=== PATIENT | male | born 2000 | race Caucasian/White ===

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

== ENCOUNTER 2021-03-10 15:49 | Emergency (ER) | payer OTHER ==
[~2021-03-10] VITALS: Ht 175.3 cm; Wt 65.8 kg
[2021-03-10] MEDS ORDERED: KETO10TA2 PO (16:22)
[2021-03-10] MEDS ORDERED: MEDROL4 MG PO (16:22)
== END 2021-03-10 16:34 | disposition home or self-care (01) ==
LOC: EMR PED 15:49
DX: M26.602 Left temporomandibular joint disorder, unspecified (principal)

== ENCOUNTER 2022-03-05 09:37 | Emergency (ER) | payer OTHER ==
[~2022-03-05] VITALS: Ht 175.3 cm; Wt 70.3 kg
[~2022-03-05 09:37] MED LIST changes: +KETO10TA2 PO; +MEDROL4 MG PO
[2022-03-05] MEDS ORDERED: OSEL75CA PO (11:50)
== END 2022-03-05 12:58 | disposition home or self-care (01) ==
LOC: EMR PED 09:37
DX: B34.9 Viral infection, unspecified (principal); R05.9 Cough, unspecified; Z20.822 Contact with and (suspected) exposure to COVID-19

== ENCOUNTER 2022-05-05 11:59 | Emergency (ER) | payer OTHER ==
[~2022-05-05] VITALS: Ht 175.3 cm; Wt 72.6 kg
[~2022-05-05 11:59] MED LIST changes: +OSEL75CA PO
[2022-05-05] MEDS ORDERED: NAPR500T14 PO (14:41)
== END 2022-05-05 14:59 | disposition home or self-care (01) ==
LOC: ER 11:59 → EMR PED 12:01
DX: M62.830 Muscle spasm of back (principal)

== ENCOUNTER → 2022-10-23 | Emergency (ER) | payer OTHER ==
[~2022-10-23] VITALS: Ht 177.8 cm; Wt 77.1 kg
[~2022-10-23] MED LIST changes: +NAPR500T14 PO
== END | disposition left against medical advice (07) ==
LOC: ER 18:46
DX: R07.89 Other chest pain (principal); Z20.822 Contact with and (suspected) exposure to COVID-19

== ENCOUNTER 2022-10-26 07:11 | Outpatient (CLI) | payer OTHER | END 2022-10-26 07:30 | disposition home or self-care (01) | LOC: MRI 07:11 | PROVIDERS: ATTEND General Practice | DX: G44.221 Chronic tension-type headache, intractable (principal); G43.909 Migraine, unspecified, not intractable, without status migrainosus; R07.9 Chest pain, unspecified | CPT/HCPCS: 70551 ==